=== PATIENT | female | born 1995 | race American Indian/Alaskan Native ===

== ENCOUNTER 2019-05-08 18:19 | Emergency (ER) | payer SELFPAY ==
--- NOTE | 2019-05-08 18:39 | Emergency Department Report ---
Blank Doc - Documentation Documentation: This is a 24-year-old female that presents with headaches. Stated that has hi story of headaches and pain is similar. Denies any other symptoms. Denies worst headache or thunderclap headache. This initial assessment/diagnostic orders/clinical plan/treatment(s) is/are subject to change based on patient's health status, clinical progression and re- assessment by fellow clinical providers in the ED. Further treatment and workup at subsequent clinical providers discretion. Patient/guardians urged not to elope from the ED as their condition may be serious if not clinically assessed and managed. Initial orders include: 1- Patient sent to [facility] for further evaluation and treatment
[2019-05-08 18:42] VITALS: BP 125/66
[2019-05-08] MEDS ORDERED: BENADRYL PO ONE (20:27)
--- NOTE | 2019-05-08 20:56 | Emergency Department Report ---
ED Headache HPI - General Chief Complaint: Headache Stated Complaint: MASSIVE HEADACHE Time Seen by Provider: 05/08/19 18:38 - History of Present Illness Initial Comments: This is a 24-year-old female that presents with headaches. Stated that has history of headaches and pain is similar. Denies any other symptoms. Denies worst headache or thunderclap headache. th is headache rated at 7/10 sharp frontal no photophobia no n/v no dizziness no lightheadedness no sore throat or ear pain Timing/Duration: other (3 days ) Quality: moderate Head Injury Location: frontal Recent Head Trauma: occasional headaches Modifying Factors: improves with: movement Associated Symptoms: denies: confusion, fatigue, facial pain, fever/chills, flushing, loss of consciousness, nausea/vomiting, nasal congestion, nasal drainage, numbness in legs/feet, seizures, sinus infection, stiff neck, vision changes, weakness Allergies/Adverse Reactions: Allergies No Known Allergies Allergy (Verified 08/28/15 22:02) Home Medications: Ambulatory Orders Acetaminophen [Acetaminophen TAB] 1,000 mg PO Q6HR #30 tablet 05/08/19 Metoclopramide [Reglan] 10 mg PO TID PRN #30 tab 05/08/19 diphenhydrAMINE [Benadryl CAP] 25 mg PO Q6HR PRN #30 capsule 05/08/19 ED Review of Systems ROS: Stated complaint: MASSIVE HEADACHE Other details as noted in HPI Constitutional: denies: chills, fever Eyes: denies: eye pain, eye discharge, vision change ENT: denies: ear pain, throat pain, hearing loss, epistaxis, congestion Respiratory: denies: cough, shortness of breath, SOB with exertion, wheezing Cardiovascular: denies: chest pain, palpitations Endocrine: no symptoms reported Gastrointestinal: denies: abdominal pain, nausea, diarrhea Genitourinary: denies: urgency, dysuria, discharge Musculoskeletal: denies: back pain, joint swelling, arthralgia Skin: denies: rash, lesions Neurological: headache. denies: weakness, numbness, paresthesias, confusion, abnormal gait, vertigo Psychiatric: denies: anxiety, depression Hematological/Lymphatic: denies: easy bleeding, easy bruising ED Past Medical Hx - Past Medical History Previous Medical History?: No Hx Hypertension: No Hx Diabetes: No Hx Deep Vein Thrombosis: No Hx Renal Disease: No Hx Sickle Cell Disease: No Hx Seizures: No Hx Asthma: No Hx HIV: No - Surgical History Past Surgical History?: No - Social History Smoking Status: Never Smoker Substance Use Type: None - Medications Home Medications: Home Medications Medication Instructions Recorded Confirmed Last Taken Type Acetaminophen [Acetaminophen TAB] 1,000 mg PO Q6HR #30 tablet 05/08/19 Unknown Rx Metoclopramide [Reglan] 10 mg PO TID PRN #30 tab 05/08/19 Unknown Rx diphenhydrAMINE [Benadryl CAP] 25 mg PO Q6HR PRN #30 capsule 05/08/19 Unknown Rx ED Physical Exam - General Limitations: No Limitations General appearance: alert, in no apparent distress - Head Head exam: Present: atraumatic, normocephalic, normal inspection - Eye Eye exam: Present: normal appearance, PERRL, EOMI. Absent: conjunctival injection, nystagmus Pupils: Present: normal accommodation - ENT ENT exam: Present: normal orophraynx, mucous membranes moist, TM's normal bilaterally, normal external ear exam - Neck Neck exam: Present: normal inspection, full ROM. Absent: tenderness, meningismus, lymphadenopathy, thyromegaly - Expanded Neck Exam Expanded Neck exam: Absent: tenderness, midline deformity, anterior neck swelling, thyroid mass, carotid bruit, tracheal deviation - Respiratory Respiratory exam: Present: normal lung sounds bilaterally. Absent: respiratory distress, wheezes, stridor, chest wall tenderness - Cardiovascular Cardiovascular Exam: Present: regular rate, normal rhythm, normal heart sounds. Absent: systolic murmur, diastolic murmur, rubs, gallop - GI/Abdominal GI/Abdominal exam: Present: soft, normal bowel sounds. Absent: distended, tenderness, bruit, hernia - Rectal Rectal exam: Present: deferred - External exam: Present: normal external exam - Extremities Exam Extremities exam: Present: normal inspection, full ROM, normal capillary refill. Absent: tenderness, pedal edema, joint swelling, calf tenderness - Back Exam Back exam: Present: normal inspection, full ROM, tenderness. Absent: CVA tenderness (R), CVA tenderness (L), muscle spasm, paraspinal tenderness, vertebral tenderness, rash noted - Neurological Exam Neurological exam: Present: alert, oriented X3, CN II-XII intact, normal gait, reflexes normal. Absent: motor sensory deficit - Expanded Neurological Exam Expanded Neurological exam: Absent: ataxia Patient oriented to: Present: person, place, time Speech: Present: fluid speech Cranial nerves: EOM's Intact: Normal, Gag Reflex: Normal, Tongue Deviation: Normal, Nystagmus: Normal, Facial Sensation: Normal Cerebellar function: Finger to Nose: Normal, Heel to Chin: Normal, Romberg: Normal Upper motor neuron: Saul Neglect: Normal, Pronator Drift: Normal, Babinski Sign: Normal, Sensory Extinction: Normal Motor strength exam: RUE: 5, LUE: 5, RLE: 5, LLE: 5 DTR: bicep (R): 2+, bicep (L): 2+, ankle (R): 2+, ankle (L): 2+ Best Eye Response ([place]): (4) open spontaneously Best Motor Response (Eliezer): (6) obeys commands Best Verbal Response ([place]): (5) oriented [place] Total: 15 - Psychiatric Psychiatric exam: Present: normal affect, normal mood - Skin Skin exam: Present: warm, dry, intact, normal color. Absent: rash, erythema ED Course Vital Signs 05/08/19 18:40 Temperature 98.5 F Pulse Rate 88 Respiratory 18 Rate Blood Pressure 125/66 O2 Sat by Pulse 100 Oximetry ED Medical Decision Making - Medical Decision Making this is an acute headache in usual location usual intensity no photophobia no n/v pt remain a/o x 3 ambulatory with steady gait no NAD will be dc'd to home with rx for tylenol jim presleyaddee pt will follow up with pcp in 2-3 days , pt verbalized agreement and understanding of discharge plan. there are no relieving or exacerbating factors. Critical care attestation.: If time is entered above; I have spent that time in minutes in the direct care of this critically ill patient, excluding procedure time. ED Disposition Clinical Impression: Headache Qualifiers: Headache type: tension-type Headache chronicity pattern: acute headache Intractability: not intractable Qualified Code(s): G44.209 - Tension-type headache, unspecified, not intractable Disposition: DC-01 TO HOME OR SELFCARE Is pt being admited?: No Does the pt Need Aspirin: No Condition: Stable Instructions: Tension Headache (ED), Acute Headache (ED) Prescriptions: Acetaminophen [Acetaminophen TAB] 1,000 mg PO Q6HR #30 tablet diphenhydrAMINE [Benadryl CAP] 25 mg PO Q6HR PRN #30 capsule PRN Reason: Headache Metoclopramide [Reglan] 10 mg PO TID PRN #30 tab PRN Reason: headache Referrals: FÉLIX MORRISSEY MD [Referring[facility] Forms: Work/School Release Form(ED) Time of Disposition: 21:05
[2019-05-08] MEDS: TYLENOL PO ONE ×2 (21:05→21:17)
[2019-05-08] MEDS: REGLAN PO ONE ×2 (21:05→21:20)
[2019-05-08] MEDS: DECADRON IM ONE ×2 (21:06→21:18)
== END 2019-05-08 21:25 | disposition home or self-care (01) ==
LOC: ED 18:19
DX: R51 Headache (principal); Z79.899 Other long term (current) drug therapy
CPT/HCPCS: 96372; 99282; J1100

== ENCOUNTER 2019-12-11 16:50 | Emergency (ER) | payer OTHER ==
[2019-12-11 18:05] VITALS: BP 108/64
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
[2019-12-11] MEDS ORDERED: IBUPROFEN 600 MG TAB PO ONE (18:28)
[2019-12-11] MEDS ORDERED: CYCLOBENZAPRINE 10 MG TAB PO ONE (18:28)
[2019-12-11] MEDS ORDERED: ACETAMINOPHEN 500 MG TAB PO ONE (18:28)
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
== END 2019-12-11 20:33 | disposition home or self-care (01) ==
LOC: ED 16:50
DX: M62.830 Muscle spasm of back (principal); M62.838 Other muscle spasm; M79.606 Pain in leg, unspecified; Z79.899 Other long term (current) drug therapy; V49.49XA Driver injured in collision with other motor vehicles in traffic accident, initial encounter; Y92.89 Other specified places as the place of occurrence of the external cause; Y92.410 Unspecified street and highway as the place of occurrence of the external cause; Y99.8 Other external cause status
CPT/HCPCS: 72040; 72100